=== PATIENT | female | born 1980 | race Caucasian/White ===

== ENCOUNTER → 2021-06-05 07:44 | Outpatient (CLI) | payer OTHER, MEDICAID, SELFPAY ==
[2021-06-05 21:06] LABS: COVID19 - ORCAS (NP or Nasal) Negative (Negative)
== END ==
PROVIDERS: PCP Physician Assistant; Visit Provider Physician Assistant
DX: Z20.822 Contact with and (suspected) exposure to COVID-19 (principal)
CPT/HCPCS: C9803; U0003

== ENCOUNTER → 2021-09-17 11:09 | Outpatient (CLI) | payer OTHER, MEDICAID, SELFPAY ==
[2021-09-17 19:02] LABS: Add Manual Diff / Slide Review NO; Basophils Absolute Auto 0 /uL (0-100); Basophils Percent Auto 0.3 % (0-2); Eosinophils Absolute Auto 200 /uL (0-450); Eosinophils Percent Auto 2.7 % (2-4); Hematocrit 43.8 % (36-46); Hemoglobin 14.7 g/dL (12.0-16.0); Lymphocytes Absolute Auto 1500 /uL (1100-4500); Lymphocytes Percent Auto 22.6 % (25-40); Mean Corpuscular HGB Conc 33.6 % (30-36); Mean Corpuscular Hemoglobin 32.4 PG (26-34); Mean Corpuscular Volume 96.5 fL (80-100); Monocytes Absolute Auto 600 /uL (0-900); Monocytes Percent Auto 8.7 % (3-14); Neutrophils Absolute Auto 4300 /uL (1500-7000); Neutrophils Percent Auto 65.7 % (50-75); Platelet Count 222 X10^3/uL (150-400); Red Blood Cell Count 4.54 X10^6/uL (4.0-5.2); Red Cell Distribution Width 13.2 % (11.6-14.8); White Blood Cell Count 6.6 X10^3/uL (4.5-11.0)
[2021-09-17 19:14] LABS: Erythrocyte Sedimentation Rate 7 MM/HR (0-20)
[2021-09-17 19:20] LABS: High Sensitivity CRP - Cardiac 2.1 mg/L (1.0-3.0)
[2021-09-17 19:34] LABS: Free T3, Triiodothyronine Free 4.17 pg/mL (2.77-5.27); Free T4, Direct Thyroxine 1.23 ng/dL (0.78-2.19)
[2021-09-17 19:47] LABS: Ferritin 47 ng/mL (6-137)
[2021-09-17 19:48] LABS: Thyroid Stimulating Hormone 2.95 uIU/mL (0.47-4.68)
[2021-09-19 00:07] LABS: Sex Hormone Binding Globulin 32.6 nmol/L (24.6-122.0)
[2021-09-19 17:06] LABS: Progesterone, Total 1.52 ng/mL
[2021-09-23 09:41] LABS: Percent Free Testosterone 2.41 % (0.50-2.80); Testosterone Free 1.23 ng/dL (0.10-0.85); Testosterone Total 51.2 ng/dL (10.0-55.0)
== END ==
PROVIDERS: PCP Physician Assistant
DX: D25.9 Leiomyoma of uterus, unspecified (principal); N10 Acute pyelonephritis; N94.6 Dysmenorrhea, unspecified
CPT/HCPCS: 82533; 82627; 82728; 84144; 84270; 84402; 84403; 84439; 84443; 84481; 85025; 85651; 86140

== ENCOUNTER 2021-10-11 10:59 | Outpatient (RCR) | payer OTHER, MEDICAID, SELFPAY ==
--- NOTE | 2021-10-11 15:53 | PT.OIE ---
Current Diagnoses Dyspareunia not due to a substance or known physiological condition (10/11/21) Stress incontinence (female) (male) (10/11/21) Rectocele (10/11/21) Visit Care Team Role Provider Type Lisa Lowery ND, LM Attending Provider Non-Staff Family Provider Primary Care Provider Referring Provider Specialty: Naturopathy Address: [address] [place] [id number] Email: Physical Therapy Initial Evaluation PT-OP-A Visit Information Start: 10/11/21 07:54 Freq: Status: Active Protocol: Document 10/11/21 11:15 AMB (Rec: 10/11/21 13:51 AMB [id number]) Out-Patient Physical Therapy Visit Information Visit Information Visit Type Initial Evaluation Visit Start Time 11:15 Visit Stop Time 12:00 Total Visit Minutes 45 Visit Number 1 PT-OP-B Current Condition Start: 10/11/21 07:54 Freq: Status: Active Protocol: Document 10/11/21 11:26 AMB (Rec: 10/11/21 12:53 AMB [id number]) Current Condition History of Current Condition Onset Date 11/2019 Current Complaints stress/urge incontinence, pelvic heaviness, urine frequency, dyspareunia History of Current Condition Leaks with cough/sneeze. No leaking before babies, felt like things were pretty good after of daughter, but then has had problems with the boy. Hard to relax with the bowel movements. - long labors, but not long pushing per patient. Not constipated, but has to move around on the toilet. Has been driving a lot, thinks that is impacting her back pain. Lives on [place] . Recent kidney infection but off antibiotics now. Treatment Goals Patient/Caregiver Goals 1. Not to pee when cough/ sneeze (urethral diverticulum) 2. Painful intercourse 3. Urgency 4. Back pain Prior Functional Status Baseline Function- ADL's Independent Baseline Function- Mobility Independent Personal Factors Other Personal Factors That May Effect [place] in [place] Therapy/Recovery . Anxiety/depression, hypothyroid. BMI 35 PT-OP-C Subjective Start: 10/11/21 07:54 Freq: Status: Active Protocol: Document 10/11/21 11:15 AMB (Rec: 10/11/21 15:40 AMB [id number]) Patient Questionnaires Pelvic Pain and Urgency/Frequency Patient Symptom Scale Pelvic Pain Score 29 OP-PT Pain Assessment Comments Pain Comments low back, upper back, neck, right hip pain (2-5) PT-OP-I Pelvic Floor Start: 10/11/21 07:54 Freq: Status: Active Protocol: Document 10/11/21 11:15 AMB (Rec: 10/11/21 15:40 AMB [id number]) Pelvic Floor Assessment Urine Pelvic Floor Surgery No Urinary Symptoms Urge Sensation,Prolapse, Hesitancy,Dribbling After Urination,Incomplete Emptying, Falling Out Feeling/Heavy,Pain Leakage Size Large Leakage Cause Cough,Sneeze,Urge Leaks Per Day 5 Voiding Frequency hourly Nocturia 3 Urine Pad Type Panty Liner Bowel Other Bowel Symptoms feeling of having to move around on toilet to fully defecate [place] Stool Chart Type 1-7 4 Pelvic Clock Pelvic Clock 3-6 Tenderness Pelvic Clock 6-9 Tenderness Pelvic Clock Other Tenderness- mildly red tissue at introitus, painful to light touch, deeper palpation not as painful Prolapse Urethrocele Grade 2 Rectocele Grade 2 Prolapse Comments Rectocele visible without bearing, increases slightly with valsalva Perineal Descent Resting Absent Bearing Absent Contraction Ability Voluntary Contraction Moderate Voluntary Relaxation Moderate Manual Muscle Testing Left 3 Manual Muscle Testing Right 3 Manual Muscle Testing Anterior 3 Manual Muscle Testing Posterior 3 Muscle Endurance (Seconds) 5 Comments Pelvic Floor Comments Encouarged pt to elevate pelvic throughout the day to do kegels to reduce pelvic heaviness, began instruction in frequency/urgency reduction PT-OP-T Assessment and Plan Start: 10/11/21 07:54 Freq: Status: Active Protocol: Document 10/11/21 11:15 AMB (Rec: 10/11/21 15:52 AMB [id number]) Physical Therapy Assessment Rehab Potential Rehabilitation Potential Good Evaluation Complexity Number of Personal Factors/Comorbidities 1-2 Number of Body Systems Impaired 3 Clinical Presentation at Evaluation Evolving Impairments Impairments Functional Activities,Pain, Strength Goals Three Impairment Pain Short Term Goal (STG) Jaclyn will engage in the intercourse of her choice with pain of 2/10 or less. STG Duration 4 weeks Blend Technician Goal (LTG) Jaclyn will use prolapse reduction techniques so that she does not feel pelvic heaviness. LTG Duration 8 weeks Two Impairment Frequency Short Term Goal (STG) Jaclyn will be able to decrease her urinary frequency to void every two hours or more. STG Duration 4 weeks One Impairment Incontinence Short Term Goal (STG) Jaclyn will be able to cough without leaking. STG Duration 6 weeks Penitentiary Goal (LTG) Jaclyn will show improved pelvic floor strength by moving from sit to stand while maintaining a pelvic floor contraction. LTG Duration 12 weeks Assessment Summary Assessment Jaclyn attends physical therapy with a host of pelvic floor and pain symptoms since the of her son almost 2 years ago. Her biggest priority is her stress urinary incontinence, but her urinary urgency/frequency, pelvic floor heaviness and painful intercourse are also important to work on. Her back pain may also be playing a role. During evaluation she did show signs of a mild/ moderate rectocele and states she has a history of a urethral diverticulum. She also had significant pain with light palpation at tissue at the 6 oclock position of the vaginal canal right at the introitus. She was able to engage her pelvic floor muscles, but would benefit from more strengthening and work to reduce her incontinence and pain. Physical Therapy Plan Frequency and Duration Frequency of Treatment 1x/Week Duration of Treatment 12 weeks Plan of Care Start Date 10/11/21 Plan of Care End Date 01/03/22 Therapeutic Interventions Therapeutic Interventions Home Exercise Program,Manual Therapy,Neuromuscular Re- education,Self-Care/Home Management,Soft Tissue Mobilization,Therapeutic Activities,Therapeutic Exercises Modalities Biofeedback,Electric Stimulation Next Visit Focus/Plan Next Note Type Treatment Note Next Visit Plan Follow up on urgency reduction , pelvic elevation for prolapse symptom relief, use of dilator.
--- NOTE | 2021-10-11 15:53 | PT.OPPOC ---
Physical, Occupational & Speech Therapy At [facility] Current Diagnoses Dyspareunia not due to a substance or known physiological condition (10/11/21) Stress incontinence (female) (male) (10/11/21) Rectocele (10/11/21) Visit Care Team Role Provider Type Lisa Lowery ND, LM Attending Provider Non-Staff Family Provider Primary Care Provider Referring Provider Specialty: Naturopathy Address: [address] [place] [address], [id number] Email: Plan Of Care PT-OP-T Assessment and Plan Start: 10/11/21 07:54 Freq: Status: Active Protocol: Document 10/11/21 11:15 AMB (Rec: 10/11/21 15:52 AMB [id number]) Physical Therapy Assessment Rehab Potential Rehabilitation Potential Good Evaluation Complexity Number of Personal Factors/Comorbidities 1-2 Number of Body Systems Impaired 3 Clinical Presentation at Evaluation Evolving Impairments Impairments Functional Activities,Pain, Strength Goals Three Impairment Pain Short Term Goal (STG) Jaclyn will engage in the intercourse of her choice with pain of 2/10 or less. STG Duration 4 weeks Alf Goal (LTG) Jaclyn will use prolapse reduction techniques so that she does not feel pelvic heaviness. LTG Duration 8 weeks Two Impairment Frequency Short Term Goal (STG) Jaclyn will be able to decrease her urinary frequency to void every two hours or more. STG Duration 4 weeks One Impairment Incontinence Short Term Goal (STG) Jaclyn will be able to cough without leaking. STG Duration 6 weeks Alf Goal (LTG) Jaclyn will show improved pelvic floor strength by moving from sit to stand while maintaining a pelvic floor contraction. LTG Duration 12 weeks Assessment Summary Assessment Jaclyn attends physical therapy with a host of pelvic floor and pain symptoms since the of her son almost 2 years ago. Her biggest priority is her stress urinary incontienence, but her urinary urgency/frequency, pelvic floor heaviness and painful intercourse are also important to work on. Her back pain may also be playing a role. During evaluation she did show signs of a mild/ moderate rectocele and states she has a history of a urethral diverticulum. She also had significant pain with light palpation at tissue at the 6 oclock position of the vaginal canal right at the introitus. She was able to engage her pelvic floor muscles, but would benefit from more strengthening and work to reduce her incontinence and pain. Physical Therapy Plan Frequency and Duration Frequency of Treatment 1x/Week Duration of Treatment 12 weeks Plan of Care Start Date 10/11/21 Plan of Care End Date 01/03/22 Therapeutic Interventions Therapeutic Interventions Home Exercise Program,Manual Therapy,Neuromuscular Re- education,Self-Care/Home Management,Soft Tissue Mobilization,Therapeutic Activities,Therapeutic Exercises Modalities Biofeedback,Electric Stimulation Next Visit Focus/Plan Next Note Type Treatment Note Next Visit Plan Follow up on urgency reduction , pelvic elevation for prolapse symptom relief, use of dilator. Plan of Care Dates Plan of Care Start Date 10/11/21 Plan of Care End Date 01/03/22 Electronically Signed by: Anne Duarte, PT 10/11/21 [id number] If you are in agreement with this Plan of Care, please return a signed and dated copy. I have reviewed this Plan of Care and certify that the skilled therapy services above are required to meet the patient?s needs. Physician Signature Date Printed Name and Credentials Clinical Instructor Signature Printed Name and Credentials
--- NOTE | 2021-11-22 15:09 | PT-OP ANOTE ---
Left voicemail asking pt to return call as she no showed last scheduled appointment.
--- NOTE | 2021-11-25 09:44 | PT.OPDS ---
Current Diagnoses Dyspareunia not due to a substance or known physiological condition (10/11/21) Stress incontinence (female) (male) (10/11/21) Rectocele (10/11/21) Visit Care Team Role Provider Type Lisa Lowery ND, LM Attending Provider Non-Staff Family Provider Primary Care Provider Referring Provider Specialty: Naturopathy Address: [address] [place] [id number] Email: Visit Number Visit Number 1 Discharge Summary PT-OP-B Current Condition Start: 10/11/21 07:54 Freq: Status: Active Protocol: Document 10/11/21 11:26 AMB (Rec: 10/11/21 12:53 AMB [id number]) Current Condition History of Current Condition Onset Date 11/2019 Current Complaints stress/urge incontinence, pelvic heaviness, urine frequency, dyspareunia History of Current Condition Leaks with cough/sneeze. No leaking before babies, felt like things were pretty good after of daughter, but then has had problems with the boy. Hard to relax with the bowel movements. - long labors, but not long pushing per patient. Not constipated, but has to move around on the toilet. Has been driving a lot, thinks that is impacting her back pain. Lives on [place] . Recent kidney infection but off antibiotics now. Treatment Goals Patient/Caregiver Goals 1. Not to pee when cough/ sneeze (urethral diverticulum) 2. Painful intercourse 3. Urgency 4. Back pain Prior Functional Status Baseline Function- ADL's Independent Baseline Function- Mobility Independent Personal Factors Other Personal Factors That May Effect [place] Therapy/Recovery . Anxiety/depression, hypothyroid. BMI 35 PT-OP-C Subjective Start: 10/11/21 07:54 Freq: Status: Active Protocol: Document 10/11/21 11:15 AMB (Rec: 10/11/21 15:40 AMB [id number]) Patient Questionnaires Pelvic Pain and Urgency/Frequency Patient Symptom Scale Pelvic Pain Score 29 OP-PT Pain Assessment Comments Pain Comments low back, upper back, neck, right hip pain (2-5) PT-OP-I Pelvic Floor Start: 10/11/21 07:54 Freq: Status: Active Protocol: Document 10/11/21 11:15 AMB (Rec: 10/11/21 15:40 AMB [id number]) Pelvic Floor Assessment Urine Pelvic Floor Surgery No Urinary Symptoms Urge Sensation,Prolapse, Hesitancy,Dribbling After Urination,Incomplete Emptying, Falling Out Feeling/Heavy,Pain Leakage Size Large Leakage Cause Cough,Sneeze,Urge Leaks Per Day 5 Voiding Frequency hourly Nocturia 3 Urine Pad Type Panty Liner Bowel Other Bowel Symptoms feeling of having to move around on toilet to fully defecate [place] Stool Chart Type 1-7 4 Pelvic Clock Pelvic Clock 3-6 Tenderness Pelvic Clock 6-9 Tenderness Pelvic Clock Other Tenderness- mildly red tissue at introitus, painful to light touch, deeper palpation not as painful Prolapse Urethrocele Grade 2 Rectocele Grade 2 Prolapse Comments Rectocele visible without bearing, increases slightly with valsalva Perineal Descent Resting Absent Bearing Absent Contraction Ability Voluntary Contraction Moderate Voluntary Relaxation Moderate Manual Muscle Testing Left 3 Manual Muscle Testing Right 3 Manual Muscle Testing Anterior 3 Manual Muscle Testing Posterior 3 Muscle Endurance (Seconds) 5 Comments Pelvic Floor Comments Encouarged pt to elevate pelvic throughout the day to do kegels to reduce pelvic heaviness, began instruction in frequency/urgency reduction PT-OP-T Assessment and Plan Start: 10/11/21 07:54 Freq: Status: Active Protocol: Document 11/25/21 09:43 AMB (Rec: 11/25/21 09:44 AMB [id number]) Physical Therapy Assessment Assessment Summary Assessment Pt canceled all follow up appointments, and then no showed her last appointment. She would be welcome to return when she is better able to make it to her appointments. She is discharged at this time . Physical Therapy Plan Discharge Physical Therapy Discharge Reasons No Longer Attending PT
== END 2021-11-27 13:28 ==
LOC: PHYS 10:59
PROVIDERS: Family Provider Midwife; PCP Midwife; Referring Provider Midwife; Visit Provider Midwife
DX: N39.3 Stress incontinence (female) (male) (principal); F52.6 Dyspareunia not due to a substance or known physiological condition; N81.6 Rectocele
CPT/HCPCS: 97162

== ENCOUNTER → 2023-09-22 13:00 | Outpatient (CLI) | payer OTHER, MEDICAID, SELFPAY | LOC: LAB 13:01 | PROVIDERS: Family Provider Midwife; PCP Midwife; Visit Provider Physician Assistant | DX: Z87.448 Personal history of other diseases of urinary system (principal); N23 Unspecified renal colic | CPT/HCPCS: 81002; 87086 ==

== ENCOUNTER → 2024-03-30 08:56 | Outpatient (CLI) | payer OTHER, MEDICAID, SELFPAY | PROVIDERS: Family Provider Midwife; PCP Family Medicine; Visit Provider Nurse Practitioner Adult Health | DX: N89.8 Other specified noninflammatory disorders of vagina (principal); N94.10 Unspecified dyspareunia; R10.9 Unspecified abdominal pain | CPT/HCPCS: 87798; 87801 ==